=== PATIENT | female | born 1955 | race Caucasian/White ===

== ENCOUNTER 2020-05-12 11:20 | Emergency (ER) | payer OTHER ==
[~2020-05-12] VITALS: Ht 157.5 cm; Wt 79.4 kg
[2020-05-12 11:35] VITALS: BP_SYST 105
[2020-05-12] MEDS ORDERED: ONDANSETRON HCL 4 MG/2 ML VIAL IVP ONE (11:45)
[2020-05-12] MEDS ORDERED: KETOROLAC TROMETHAMINE 60 MG/2 ML VIAL IM ONE ×2 (11:45→11:52)
[2020-05-12] MEDS ORDERED: ONDANSETRON 4 MG ODT TAB ONE (11:52)
[2020-05-12 12:43] LABS: BASOPHILS # (AUTO) 0.1 K/uL (0.0-0.2); BASOPHILS % (AUTO) 0.8 % (0.0-2.0); EOSINOPHILS # (AUTO) 0.2 K/uL (0.0-0.4); HEMATOCRIT 44.9 % (36-48); HEMOGLOBIN 15.2 g/dL (12.0-16.0); LYMPHOCYTES # (AUTO) 1.8 K/uL (1.0-5.5); LYMPHOCYTES % (AUTO) 21.2 % (20.5-51.5); MEAN CORPUSCULAR HEMOGLOBIN 30 pg (27-31); MEAN CORPUSCULAR HGB CONC 34 % (32-36); MEAN CORPUSCULAR VOLUME 89 fL (79.0-98.0); MONOCYTES # (AUTO) 0.4 K/uL (0.0-1.0); MONOCYTES % (AUTO) 4.8 % (1.7-9.3); NEUTROPHILS % (AUTO) 71.2 % (40.0-70.0); PLATELET COUNT (AUTO) 235 K/uL (130-430); RED BLOOD CELL COUNT(AUTO) 5.04 MIL/uL (4.2-6.2); RED CELL DISTRIBUTION WIDTH 14.1 % (9.0-15.0); WHITE BLOOD COUNT (AUTO) 8.4 K/uL (4.8-10.8)
[2020-05-12 13:09] LABS: CALCIUM 9.6 mg/dL (8.4-11.0); CREATININE 1.07 mg/dL (0.55-1.30); POTASSIUM 4.8 mmol/L (3.5-5.1)
[2020-05-12 13:13] LABS: ALBUMIN 4.6 g/dL (3.4-4.8); TOTAL BILIRUBIN 0.6 mg/dL (0.0-1.0)
[2020-05-12 13:43] VITALS: BP_SYST 100
[2020-05-12 15:27] LABS: BILIRUBIN,URINE 1+ (NEGATIVE); BLOOD, URINE NEGATIVE (NEGATIVE); CLARITY/URINE SL CLOUDY (CLEAR); COLOR,URINE YELLOW (YELLOW); GLUCOSE,URINE NEGATIVE (NEGATIVE); KETONES,URINE NEGATIVE (NEGATIVE); LEUKOCYTE ESTERASE ,URINE NEGATIVE (NEGATIVE); NITRITE, URINE NEGATIVE (NEGATIVE); PH,URINE 5.5 (5.0-8.0); PROTEIN URINE 1+ (NEGATIVE); UROBILINOGEN,URINE 0.2 (0.2-1.0)
[2020-05-12 15:48] LABS: BACTERIA,URINE None Seen /HPF (None Seen); RBC,URINE 0-3 /HPF (0-3); WBC,URINE 0-3 /HPF (0-3)
[2020-05-12 15:49] LABS: YEAST,URINE None Seen /HPF (None Seen)
== END 2020-05-12 13:43 | disposition home or self-care (01) ==
LOC: SED 11:20
DX: K80.50 Calculus of bile duct without cholangitis or cholecystitis without obstruction (principal)
CPT/HCPCS: 36415; 76700; 80053; 81000; 82150; 83605; 83690; 84703; 85025; 96372; 96374; 99285; J1885; Q0162; 99284

== ENCOUNTER 2021-05-17 15:18 | Emergency (ER) | payer OTHER, SELFPAY ==
[~2021-05-17] VITALS: Ht 160 cm; Wt 81.6 kg
[2021-05-17 15:30] VITALS: BP_SYST 170
--- NOTE | 2021-05-17 15:30 | NUR ---
Pt to remain in tent until ER bed becomes available.
[2021-05-17] MEDS ORDERED: NACL 0.9% 1,000 ML IV ONE (16:15)
[2021-05-17] MEDS ORDERED: ONDANSETRON HCL 4 MG/2 ML VIAL IVP ONE (16:15)
[2021-05-17] MEDS ORDERED: MORPHINE 4 MG INJ. 4 MG/ML VIAL IVP ONE (16:15)
--- NOTE | 2021-05-17 16:20 | NUR ---
PT TO BED 3 FOR EVALUATION. REPORT GIVEN TO RADHA RIVAS WHO WILL ASSUME CARE.
--- NOTE | 2021-05-17 16:45 | NUR ---
WAS TOLD BY CHARGE NURSE I HAD THIS PT SHE IS ALERT AND ORIENTED TIMES THREE OVERALL APPEARANCES FAIR C/O STOMACH HURTS TOLD ME IT IS HER KIDNEY ABD SOFT OBESE. POS BS IN ALL FOUR QUAD DENIES DIARRHEA DENIES N/V DENIES BURNING DURING URINATION BUT STATED SHE PEEPEE ALL THE TIME IS AFREBILE TEACHING STARTED COMFORT AND SAFETY MAINTAINED
[2021-05-17 16:56] LABS: BILIRUBIN,URINE NEGATIVE (NEGATIVE); BLOOD, URINE 2+ (NEGATIVE); COLOR,URINE YELLOW (YELLOW); GLUCOSE,URINE NEGATIVE (NEGATIVE); KETONES,URINE NEGATIVE (NEGATIVE); LEUKOCYTE ESTERASE ,URINE 2+ (NEGATIVE); NITRITE, URINE POSITIVE (NEGATIVE); PROTEIN URINE 2+ (NEGATIVE); UROBILINOGEN,URINE 0.2 (0.2-1.0)
[2021-05-17 17:20] LABS: BASOPHILS % (AUTO) 0.4 % (0.0-2.0); EOSINOPHILS # (AUTO) 0.1 K/uL (0.0-0.4); EOSINOPHILS % (AUTO) 0.9 % (0.0-4.0); HEMATOCRIT 36.3 % (36-48); HEMOGLOBIN 12.3 g/dL (12.0-16.0); LYMPHOCYTES # (AUTO) 1.2 K/uL (1.0-5.5); LYMPHOCYTES % (AUTO) 11.1 % (20.5-51.5); MEAN CORPUSCULAR HEMOGLOBIN 30 pg (27-31); MEAN CORPUSCULAR HGB CONC 34 % (32-36); MEAN CORPUSCULAR VOLUME 88 fL (79.0-98.0); MONOCYTES # (AUTO) 0.2 K/uL (0.0-1.0); MONOCYTES % (AUTO) 1.4 % (1.7-9.3); NEUTROPHILS # (AUTO) 9.2 K/uL (1.8-7.7); NEUTROPHILS % (AUTO) 86.2 % (40.0-70.0); PLATELET COUNT (AUTO) 215 K/uL (130-430); RED BLOOD CELL COUNT(AUTO) 4.11 MIL/uL (4.2-6.2); WHITE BLOOD COUNT (AUTO) 10.7 K/uL (4.8-10.8)
[2021-05-17 17:24] LABS: CLARITY/URINE HAZY (CLEAR)
--- NOTE | 2021-05-17 17:28 | NUR ---
WAS MED TIME ONE WITH MORPHINE AND ZOFRAN FOR ABD PAIN WITH EFFECT
[2021-05-17 17:29] LABS: BACTERIA,URINE MODERATE /HPF (None Seen); MUCUS,URINE None Seen /LPF (None Seen); RBC,URINE 0-3 /HPF (0-3); WBC,URINE >100 /HPF (0-3)
[2021-05-17] MEDS ORDERED: cefTRIAXone 1 GM in D5W 50 ML IV ONE (17:45)
[2021-05-17 17:56] LABS: CALCIUM 8.9 mg/dL (8.4-11.0); CREATININE 0.99 mg/dL (0.55-1.30)
[2021-05-17 18:01] LABS: ALBUMIN 3.5 g/dL (3.4-4.8)
[2021-05-17] MEDS ORDERED: CEPH-548 PO (19:49)
[2021-05-17] MEDS ORDERED: IBUP-1969 PO (19:49)
[2021-05-17 20:21] VITALS: BP_SYST 104
== END 2021-05-17 20:21 | disposition home or self-care (01) ==
LOC: SED 15:18 → UNDOADMIN 18:46 → STU 18:46
DX: K80.70 Calculus of gallbladder and bile duct without cholecystitis without obstruction (principal); N39.0 Urinary tract infection, site not specified; E11.9 Type 2 diabetes mellitus without complications; Z79.899 Other long term (current) drug therapy
CPT/HCPCS: 36415; 74176; 76376; 80053; 81000; 83690; 85025; 87040; 87086; 96361; 96365; 96375; 99285; J2270; J2405; J7030; G0378